=== PATIENT | male | born 1970 | race Caucasian/White ===

== ENCOUNTER 2018-02-06 15:15 | Outpatient (CLI) | payer BC ==
--- NOTE | 2018-02-06 16:22 | ULT ---
RIGHT LOWER EXTREMITY VENOUS DUPLEX ULTRASOUND INCLUDING COLOR AND SPECTRAL DOPPLER IMAGING: Date: 02/06/18 HISTORY: 47-year-old male with history of right leg pain. Patient is preoperative for right knee replacement. History of prior right leg deep venous thrombosis in 2010. TECHNIQUE: Exam performed from groin to ankle including visualized greater saphenous, common femoral, superficia l femoral, profunda femoral, popliteal, trifurcation, and posterior tibial vein regions. FINDINGS: There is phasic flow at all levels with normal compressibility and normal augmentation. No intralumin al thrombus. IMPRESSION: No evidence for deep venous thrombosis. POS: [facility]
== END 2018-02-06 15:16 | disposition home or self-care (01) ==
LOC: SCSULT 15:15
PROVIDERS: ATTEND Orthopaedic Surgery
DX: M79.604 Pain in right leg (principal); M79.89 Other specified soft tissue disorders

== ENCOUNTER 2018-02-09 13:22 | Outpatient (CLI) | payer BC ==
[2018-02-09 15:14] LABS: #Eosinphils 0.2 thou/uL (0.0-0.7); #Lymphocytes 1.6 thou/uL (1.20-3.40); #Monocytes 0.7 thou/uL (0.11-0.59); #Neutrophils 5.4 thou/uL (1.40-6.50); %Basophils 0.5 % (0.0-1.0); %Eosinophils 1.9 % (0.0-10.0); %Lymphocytes 20.3 % (21.0-51.0); %Monocytes 8.7 % (0.0-10.0); %Neutrophils 68.6 % (42.0-75.0); Hemoglobin 14.4 g/dL (14.0-18.0); Mean Corpuscular HGB CONC 32.7 g/dL (32.0-36.0); Mean Corpuscular Hemoglobin 29.1 pg (27.0-31.0); Mean Platelet Volume 6.4 fL (7.4-10.4); Platelet Count 282 thou/uL (130-400); RBC Distribution Width 12.2 % (11.5-14.5); Red Blood Cell (RBC) Count 4.94 mill/uL (4.70-6.10); White Blood Cell (WBC) Count 7.8 thou/uL (4.8-10.8)
[2018-02-09 15:22] LABS: Bilirubin Negative (Negative); Blood, Urine Small (Negative); Clarity CLOUDY (Clear); Glucose, Urine (Dipstick) Negative (Negative); Leukocyte Large (Negative); Nitrite Positive (Negative); Protein, Urine (Dipstick) Negative (Neg-Trace); Specific Gravity, Urine 1.017 (1.002-1.036); Urobilinogen 0.2 mg/dL (0.2-1.0); pH, Urine 5.5 (5.0-9.0)
[2018-02-09 15:35] LABS: Bacteria/HPF 2+ HPF (None Seen); Hyaline Casts/LPF 4-6 HYALINE CAST LPF (0-3 Hyaline); Pathc Cast-AUWi Flag 1.59 (0-2.49); RBC/HPF 0-3 HPF (0-3); Squamous Epithelial 0-3 HPF (0-3)
[2018-02-09 15:52] LABS: Anion Gap 14 mmol/L (10-20); BUN (Urea Nitrogen) 17 mg/dL (8.9-20.6); Calc. Creatinine Clearance 0 mL/min (70-130); Calcium 8.7 mg/dL (7.8-10.44); Carbon Dioxide 26 mmol/L (22-29); Chloride 102 mmol/L (98-107); Estimated GFR-MDRD Greater than 90; Glucose 70 mg/dL (70-105); Potassium 3.9 mmol/L (3.5-5.1); Sodium 138 mmol/L (136-145)
== END 2018-02-09 13:23 | disposition home or self-care (01) ==
LOC: LABBT 13:22
PROVIDERS: ATTEND Orthopaedic Surgery
DX: Z01.812 Encounter for preprocedural laboratory examination (principal); M17.11 Unilateral primary osteoarthritis, right knee
CPT/HCPCS: 80048; 81001; 85025; 87081

== ENCOUNTER 2018-02-09 15:00 | Inpatient (IN) | payer BC ==
[2018-02-21] MEDS ORDERED: Lidocaine 1% (PF) 30 ML VIAL ONE ×2 (06:12→06:16)
[2018-02-21] MEDS ORDERED: Fentanyl 100 MCG/2 ML VIAL ONE ×3 (06:12→09:44)
[2018-02-21] MEDS ORDERED: Midazolam HCl 2 mg/2 ml Vial ONE ×2 (06:12→06:16)
[2018-02-21] MEDS ORDERED: Clindamycin/D5W 600 mg/50 ml Premix Bag ONE (06:19)
[2018-02-21] MEDS ORDERED: Sodium Chloride 0.9% 100 ML ONE (06:19)
[2018-02-21] MEDS ORDERED: Zolpidem Tartrate 5 MG TAB PO PRN ×2 (07:32→11:19)
[2018-02-21] MEDS ORDERED: traMADol HCl 50 MG TAB PO PRN ×3 (07:32→11:19)
[2018-02-21] MEDS ORDERED: Ondansetron PF 4 MG/2 ML Vial IVP PRN ×2 (07:32→11:19)
[2018-02-21] MEDS ORDERED: Promethazine HCl 25 MG/ML VIAL IM PRN ×2 (07:32→11:19)
[2018-02-21] MEDS ORDERED: HYDROcodone/Acetaminophen 10/325 mg Tablet PO PRN ×2 (07:32)
[2018-02-21] MEDS ORDERED: Ropivacaine HCl/PF 250 ML in Premix Bag 1 BAG NERVE BLCK SCH (07:32)
[2018-02-21] MEDS ORDERED: Fentanyl 100 MCG/2 ML VIAL IV PRN (07:37)
[2018-02-21] MEDS ORDERED: Bupivacaine/Epinephrine 0.25% 30 ML VIAL ONE (07:39)
[2018-02-21] MEDS ORDERED: HYDROmorphone 2 MG/ML VIAL ONE (07:57)
[2018-02-21] MEDS ORDERED: Tranexamic Acid 1,000 MG in Sodium Chloride 0.9% 100 ML IVPB SCH (09:45)
--- NOTE | 2018-02-21 10:11 | RAD ---
RIGHT KNEE TWO VIEWS: History: Post op evaluation. Knee replacement. FINDINGS/IMPRESSION: Post op changes are noted. Knee prosthesis has been placed. Components appear in adequate position an d alignment on this two view study. POS: [facility]
--- NOTE | 2018-02-21 10:28 | OP ---
DATE OF PROCEDURE: 02/21/2018 PREOPERATIVE DIAGNOSIS: Severe varus osteoarthritis, right knee. POSTOPERATIVE DIAGNOSIS: Severe varus osteoarthritis, right knee. PROCEDURE PERFORMED: Right total knee arthroplasty. STAFF: Milton Curiel M.D. ANESTHESIOLOGY CRNA: Marely Turner PA-C. ANESTHESIA: LMA canal block with indwelling catheter single shot sciatic. ESTIMATED BLOOD LOSS: 100 mL. TOURNIQUET TIME: 99 minutes at 300 mmHg. ANTIBIOTICS: Ancef 2 gram, vancomycin 2 grams. IMPLANTS: [place] Triathlon size 6 CR femur, an A29 patella, a 6 universal baseplate, a 6 x CS 11 mm Triathlon X3 poly and Simplex antibiotic cement. COMPLICATIONS: None. HISTORY OF PRESENT ILLNESS: Mr. Zavala is a 47-year-old male with knee pain. 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 The patient's pain was a 10/10. I discussed with the patient preoperatively he had been cleared for surgery in that he has a significant complica tion risks to include pain, scar, bleeding, infection, damage to vital structures, decreased range of motion or strength, continued pain despite surgical intervention, damage to vital structures, loss o f life or limb. I discussed that we will need to start him on Xarelto postoperatively and keep it fo r 4 weeks as a treatment plan, 10 mg daily. I discussed with the patient we would give him give him preoperative antibiotics. I discussed the patient has a very difficult case given his size and impla nts. He understood this and elected to proceed. PROCEDURE IN DETAIL: Timeout was performed designating the patient's right lower extremity as the op erative site, based on site, consents and markings. After completion of timeout, the patient's right lower extremity was prepped and draped in sterile fashion. A tourniquet was brought up and was left up for a total of 99 minutes. Anterior midline incision made to take down the medial patellar arthr otomy, everted the patella, there were some large osteophytes we had to rongeur off, excised the fat pad, did our medial soft tissue release ____ out from the osteophytes. We then entered the patella b rought up to the ACL. There was no remnant ACL. The notch was packed with osteophytes. There were large osteophytes throughout the femur as well as some small ones on the tibia. We had to rongeur th ose femoral osteophytes off to expose, took off some of the synovitis proximally to better expose the femur. We then mapped out the distal femur, cut 0 degrees varus valgus tendon 10 to 9 with 4 degree s of anterior slope. After completion of this, we then moved to our femoral box cuts. We pinned our box into place, cut. Put the external guide into place. We sized to a 6 based on actual osteophyte s anteriorly as well as based off of the anterior cut. We then removed, placed our jig, cut our rosendo fers, anterior and posterior slope, removed those, we tried to place our pickle fork, we had difficul ty because the patient's osteophytes posteriorly, we had to rongeur off a portion of the posterior os teophytes. We exposed the posterior osteophytes. After we exposed the osteophytes we then were able to guide further removing the medial lateral compartments, we were able to cut and exposed the proxi mal tibia. We cut down, pinned our jig into place. We cut at negative 1 and 5 with 4 degrees of pos terior slope. After removing these removed the osteophytes medial and laterally we then placed our l aminar warehouse pricing and inventory clerk. We decompressed our PCL. There was a remnant PCL that was still intact. We decomp ressed our posterior components, posterior osteophytes, posterior, medial and laterally. We did our notchplasty, felt we had completely exposed our tibia. We then trialed with a size 6 tray, trialed b ased on the place in the femur as well as the tibia and flexed and extended and floated the tibia. I felt like we had a good position, we pinned it in place. We then took our final position and cut mu ltiple osteophytes off the patella, sized it up to 28. We cut it down to about, originally it was bi gger than that, I cut it down about a 15, placed a 30 patella, it seemed to track well. We did a lat eral lesion within the, some lateral release to help with positioning the patella and took down the o steophytes. After completion of this, we then removed all our components, drilled our lugs, we cut o ur keel then drilled our baseplate for a universal base plate, removed all of the implants, washed. We then cemented in our tibia, removed excess cement, placed our poly, cemented in our femur. The p atient had a good posterior drawer, came almost what looked like to me on full extension, stable varu s valgus. We then removed all excess cement and placed our patella, cemented our patella to hold it in place, removed excess cement. Flexed the knee again to ensure there was no excess, and washed out the knee and started closing. We closed our medial patellar arthrotomy with #2 Quill, 0 Quill, 2-0 Quill, and glue. The patient was placed in extension. The patient had overall good alignment post-p rocedure. The patient will be sent to the [facility] on Xarelto as above.
[2018-02-21] MEDS ORDERED: diphenhydrAMINE 25 MG CAP PO PRN (11:19)
[2018-02-21] MEDS ORDERED: Ketorolac Tromethamine 30 MG/ML VIAL IVP PRN (11:19)
[2018-02-21] MEDS ORDERED: Acetaminophen 325 MG TAB PO PRN (11:19)
[2018-02-21] MEDS ORDERED: Fentanyl 100 MCG/2 ML VIAL SLOW IVP PRN ×2 (11:19)
[2018-02-21 14:31] VITALS: BMI 45.2
[2018-02-21] MEDS: Dextrose 5 %-0.45 % NaCl 1,000 ML IV SCH ×2 (15:19→15:24)
[2018-02-21] MEDS: Multivitamin W/ Minerals 1 TAB PO SCH (15:20)
[2018-02-21] MEDS: Senokot S 8.6-50 MG TAB PO SCH ×2 (15:20→20:50)
[2018-02-21] MEDS: Ferrous Gluconate 324 MG TAB PO SCH ×2 (15:20→20:50)
[2018-02-21] MEDS: Ketorolac Tromethamine 30 MG/ML VIAL IVP SCH ×3 (15:20→23:06)
[2018-02-21] MEDS: CEFAZOLIN 2 GM/50 ML BAG IVPB SCH ×2 (15:24→21:32)
[2018-02-21] MEDS ORDERED: Ropivacaine 0.5% HCl/PF (150 MG/30 ML VIAL) ONE (15:28)
[2018-02-21] MEDS ORDERED: Bupivacaine 0.25% HCL 30 ML VIAL ONE (15:28)
[2018-02-21] MEDS ORDERED: Ondansetron PF 4 MG/2 ML Vial ONE (15:42)
[2018-02-21] MEDS ORDERED: ePHEDrine/0.9% NaCl/PF SYRINGE 50 mg/10 ml ONE (15:42)
[2018-02-21] MEDS ORDERED: Dexamethasone 20 MG/5 ML VIAL ONE (15:42)
[2018-02-21] MEDS ORDERED: PROPOFOL 200 MG/20 ML VIAL ONE (15:42)
[2018-02-21] MEDS ORDERED: Glycopyrrolate 0.2 MG/ML 5 ML SYRINGE ONE (15:42)
[2018-02-21] MEDS ORDERED: Lidocaine 1% PF 5 ML VIAL ONE (15:42)
[2018-02-21] MEDS ORDERED: Ketorolac Tromethamine 30 MG/ML VIAL ONE (15:42)
[2018-02-21] MEDS: HYDROcodone/Acetaminophen 10/325 mg Tablet PO PRN ×2 (17:18→21:32)
--- NOTE | 2018-02-21 17:24 | HP ---
PRIMARY CARE PROVIDER: Abi Rivas M.D. HISTORY OF PRESENT ILLNESS: Admitted to the hospital by Milton Curiel. He had a right total knee r eplacement this morning. Sound was consulted for medical management. Postoperatively, he has had no fever, sweats, chills, no chest pain, shortness of breath, no nausea or vomiting. PAST MEDICAL HISTORY: Gastroesophageal reflux disease, supraventricular tachycardia, osteoarthritis, previous history of deep vein thrombosis. CURRENT MEDICATIONS: Omeprazole 20 mg a day, vitamins, aspirin 81 mg a day. ALLERGIES: SULFA. PAST SURGICAL HISTORY: He has had a gastric sleeve done, previous to that he had a lap band. FAMILY HISTORY: His parents are alive. His mother has valvular heart disease. His father has coron homero artery disease with coronary artery bypass graft. SOCIAL HISTORY: Patient is , FULL CODE. at bedside, surrogate decision maker. No tobac co, no alcohol. 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 REVIEW OF SYSTEMS: General: No headaches, dizziness or fainting. Eyes: No double vision, blurred vision, flashing lights. ENT: No ear pain or drainage, nasal bleeding, trouble swallowing. Cardiac : No chest pain, orthopnea or paroxysmal nocturnal dyspnea. Respiratory: No cough, wheezing or ast hma. Gastrointestinal: No nausea, vomiting, abdominal pain, diarrhea. Genitourinary: No hematuria or dysuria. Musculoskeletal: Bilateral knee pain. He states that it [id number] arthritis from football and having once been 600 pounds. He also has some varicose veins. NEUROLOGIC: No strokes, seizures or focal weakness. PSYCHIATRIC: No anxiety, depression. SKIN: No bruises, bleeding or rash. HEME/LYMPH: No tender or swollen lymph nodes in axilla, inguinal or cervical area. PHYSICAL EXAMINATION: GENERAL: The patient is alert, oriented, cooperative. VITAL SIGNS: Blood pressure 143/68, temperature 97.7, pulse 67, respirations 16. HEENT: Revealed pupils equal, round, reactive to light. Extraocular movements are intact. Sclerae white. Tympanic membranes clear. Nose is clear. Oral mucous membranes are wet. Dental hygiene is good. NECK: Supple, without jugular venous distention, adenopathy, thyromegaly. CHEST: Clear to auscultation and percussion. HEART: Regular rate and rhythm. First and second heart sounds are clear. There are no murmurs, no gallops. ABDOMEN: Soft, bowel sounds are normal. There is no hepatosplenomegaly, no mass, no rebound, no bru its. EXTREMITIES: Reveal 1+ edema with no cyanosis or clubbing. PULSES: Carotid, radial, femoral, and dorsalis pedis pulses intact. SKIN: Warm and dry without bruises or rash. HEME/LYMPH: No tender or swollen lymph nodes in axilla, inguinal or cervical area. NEUROLOGICAL: Cranial nerves II-XII are intact. Moves all extremities. X-RAY FINDINGS: No chest x-ray is presented. No EKG is presented. LABORATORY DATA: Laboratory done preoperatively. CBC normal. Basic metabolic profile normal. Bloo d sugar 70. DIAGNOSES: Osteoarthritis, gastroesophageal reflux disease, supraventricular tachycardia, history of deep venous thrombosis. PLAN: Agree with current management. See no active problems, we will follow with you. Agree with mita rossi for deep vein thrombosis protection in the postoperative patient.
[2018-02-21] MEDS: Calcium Carbonate 600 MG TAB PO SCH (20:49)
[2018-02-22 05:21] LABS: Hemoglobin 12.6 g/dL (14.0-18.0); Mean Corpuscular HGB CONC 32.6 g/dL (32.0-36.0); Mean Corpuscular Hemoglobin 29.2 pg (27.0-31.0); Mean Corpuscular Volume 89.7 fL (78.0-98.0); Mean Platelet Volume 6.7 fL (7.4-10.4); Platelet Count 248 thou/uL (130-400); RBC Distribution Width 12.2 % (11.5-14.5); Red Blood Cell (RBC) Count 4.33 mill/uL (4.70-6.10)
[2018-02-22] MEDS: Ketorolac Tromethamine 30 MG/ML VIAL IVP SCH ×4 (05:53→23:30)
[2018-02-22] MEDS: HYDROcodone/Acetaminophen 10/325 mg Tablet PO PRN ×4 (06:41→21:36)
[2018-02-22] MEDS: Senokot S 8.6-50 MG TAB PO SCH ×2 (08:29→20:28)
[2018-02-22] MEDS: Rivaroxaban 10 MG TAB PO SCH (08:29)
[2018-02-22] MEDS: Multivitamin W/ Minerals 1 TAB PO SCH (08:30)
[2018-02-22] MEDS: Ferrous Gluconate 324 MG TAB PO SCH ×2 (08:30→20:28)
[2018-02-22] MEDS: Calcium Carbonate 600 MG TAB PO SCH ×2 (08:30→20:28)
[2018-02-22] MEDS: Dextrose 5 %-0.45 % NaCl 1,000 ML IV SCH ×2 (08:31→16:32)
--- NOTE | 2018-02-22 09:37 | PDOC.PN ---
- Subjective Encounter Start Date: 02/22/18 Encounter Start Time: 09:35 Subjective: walking with PT, got dizzy, had pain in arms and surgical leg. BP in 80s sy -: now fine , BP Nl, no chezt pain or sob - Objective MAR Reviewed: Yes Vital Signs & Weight: Vital Signs (12 hours) Temp Pulse Resp BP Pulse Ox 02/22/18 04:52 98.6 F 60 18 112/60 98 02/22/18 00:32 98.5 F 59 L 20 105/62 99 Weight Weight 343 lb I&O: 02/21/18 02/22/18 02/23/18 06:59 06:59 06:59 Intake Total 3300 Output Total 3400 Balance -100 Result Diagrams: 02/22/18 04:50 Phys Exam - Physical Examination Neck: no JVD Respiratory: clear to auscultation bilateral Cardiovascular: RRR, no significant murmur Gastrointestinal: soft, non-tender Musculoskeletal: no edema Dx/Plan (1) Osteoarthritis Code(s): M19.90 - UNSPECIFIED OSTEOARTHRITIS, UNSPECIFIED SITE Status: Acute (2) GERD (gastroesophageal reflux disease) Code(s): K21.9 - GASTRO-ESOPHAGEAL REFLUX DISEASE WITHOUT ESOPHAGITIS Status: Acute (3) H/O paroxysmal supraventricular tachycardia Code(s): Z86.79 - PERSONAL HISTORY OF OTHER DISEASES OF THE CIRCULATORY SYSTEM Status: Acute (4) DVT prophylaxis Code(s): UWK2425 - Status: Acute (5) Vaso vagal episode Code(s): R55 - SYNCOPE AND COLLAPSE Status: Acute - Plan patient seen and examined, no evidence for CV problem. Hg 12.6, monitor, -: FU later today * .
[2018-02-23] MEDS: Dextrose 5 %-0.45 % NaCl 1,000 ML IV SCH ×2 (04:20→08:47)
[2018-02-23 05:14] LABS: Hemoglobin 11.7 g/dL (14.0-18.0); Mean Corpuscular HGB CONC 32.2 g/dL (32.0-36.0); Mean Corpuscular Hemoglobin 29.2 pg (27.0-31.0); Mean Corpuscular Volume 90.8 fL (78.0-98.0); Mean Platelet Volume 6.6 fL (7.4-10.4); Platelet Count 212 thou/uL (130-400); RBC Distribution Width 12.4 % (11.5-14.5); Red Blood Cell (RBC) Count 3.99 mill/uL (4.70-6.10); White Blood Cell (WBC) Count 6.5 thou/uL (4.8-10.8)
[2018-02-23] MEDS: Ketorolac Tromethamine 30 MG/ML VIAL IVP SCH (06:21)
[2018-02-23] MEDS: HYDROcodone/Acetaminophen 10/325 mg Tablet PO PRN ×2 (08:44→13:42)
[2018-02-23] MEDS: Ferrous Gluconate 324 MG TAB PO SCH (08:45)
[2018-02-23] MEDS: Rivaroxaban 10 MG TAB PO SCH (08:45)
[2018-02-23] MEDS: Multivitamin W/ Minerals 1 TAB PO SCH (08:45)
[2018-02-23] MEDS: Calcium Carbonate 600 MG TAB PO SCH (08:46)
[2018-02-23] MEDS: Senokot S 8.6-50 MG TAB PO SCH (08:46)
[2018-02-23 12:13] VITALS: TEMP 98.4
[2018-02-23 12:20] VITALS: BP 172/71
== END 2018-02-23 13:56 | disposition home or self-care (01) | DRG 470 ==
LOC: SJJU 02-21 05:30
PROVIDERS: ADMIT Orthopaedic Surgery; ATTEND Orthopaedic Surgery
PROC: 0SRC0J9 Replacement of Right Knee Joint with Synthetic Substitute, Cemented, Open Approach (ICD-10-PCS; principal; 2018-02-21)
DX: M17.0 Bilateral primary osteoarthritis of knee (principal); Z68.42 Body mass index [BMI] 45.0-49.9, adult; K21.9 Gastro-esophageal reflux disease without esophagitis; Z86.718 Personal history of other venous thrombosis and embolism; Z98.84 Bariatric surgery status; Z79.899 Other long term (current) drug therapy; Z79.82 Long term (current) use of aspirin; Z88.2 Allergy status to sulfonamides; E66.01 Morbid (severe) obesity due to excess calories; Z86.79 Personal history of other diseases of the circulatory system
CPT/HCPCS: 36415; 36416; 85027; 86850; 86900; 86901; C1713; C1776; G8978-GP-CL; G8979-GP-CJ; J1100; J1170; J1885; J2001; J2250; J2405; J2704; J2795; J3010; J3370; J3490; J7050; S0020

== ENCOUNTER 2018-02-20 08:00 | Outpatient (CLI) | payer BC | END 2018-02-20 08:01 | disposition home or self-care (01) | LOC: LABBT 08:00 | PROVIDERS: ATTEND Orthopaedic Surgery | DX: Z01.812 Encounter for preprocedural laboratory examination (principal); M17.0 Bilateral primary osteoarthritis of knee | CPT/HCPCS: 86850; 86900; 86901 ==

== ENCOUNTER 2018-05-18 04:32 | Outpatient (CLI) | payer BC ==
[2018-05-18 10:46] LABS: #Basophils 0.1 thou/uL (0.0-0.2); #Eosinphils 0.1 thou/uL (0.0-0.7); #Lymphocytes 1.1 thou/uL (1.20-3.40); #Monocytes 0.4 thou/uL (0.11-0.59); #Neutrophils 3.9 thou/uL (1.40-6.50); %Basophils 1.2 % (0.0-1.0); %Eosinophils 2.3 % (0.0-10.0); %Lymphocytes 19.9 % (21.0-51.0); %Monocytes 6.7 % (0.0-10.0); %Neutrophils 69.9 % (42.0-75.0); Hemoglobin 14.1 g/dL (14.0-18.0); Mean Corpuscular HGB CONC 31.6 g/dL (32.0-36.0); Mean Corpuscular Hemoglobin 27.9 pg (27.0-31.0); Mean Corpuscular Volume 88.4 fL (78.0-98.0); Mean Platelet Volume 6.4 fL (7.4-10.4); Platelet Count 291 thou/uL (130-400); Red Blood Cell (RBC) Count 5.04 mill/uL (4.70-6.10); White Blood Cell (WBC) Count 5.6 thou/uL (4.8-10.8)
[2018-05-18 10:52] LABS: INR-International Normal Ratio 1.1; PTT 28.6 SEC (22.9-36.1); Prothrombin Time 13.8 SEC (12.0-14.7)
[2018-05-18 11:03] LABS: Anion Gap 10 mmol/L (10-20); BUN (Urea Nitrogen) 14 mg/dL (8.9-20.6); Calc. Creatinine Clearance 0 mL/min (70-130); Calcium 9.2 mg/dL (7.8-10.44); Carbon Dioxide 29 mmol/L (22-29); Chloride 102 mmol/L (98-107); Estimated GFR-MDRD Greater than 90; Glucose 76 mg/dL (70-105); Sodium 137 mmol/L (136-145)
[2018-05-18 11:26] LABS: Bilirubin Negative (Negative); Blood, Urine Negative (Negative); Clarity CLEAR (Clear); Glucose, Urine (Dipstick) Negative (Negative); Leukocyte Negative (Negative); Nitrite Negative (Negative); Protein, Urine (Dipstick) Negative (Neg-Trace); Specific Gravity, Urine 1.005 (1.002-1.036); Urobilinogen 0.2 mg/dL (0.2-1.0); pH, Urine 6.5 (5.0-9.0)
[2018-05-18 11:28] LABS: Bacteria/HPF None Seen HPF (None Seen); Hyaline Casts/LPF 0-3 HYALINE CAST LPF (0-3 Hyaline); RBC/HPF 0-3 HPF (0-3); Squamous Epithelial 0-3 HPF (0-3); WBC/HPF None Seen HPF (0-3)
--- NOTE | 2018-05-19 09:01 | EKG ---
Test Reason : Blood Pressure : / mmHG Vent. Rate : 054 BPM Atrial Rate : 054 BPM P-R Int : 138 ms QRS Dur : 114 ms QT Int : 458 ms P-R-T Axes : 046 064 052 degrees QTc Int : 434 ms Sinus bradycardia Otherwise normal ECG When compared with ECG of 20-DEC-2016 22:17, No significant change was found Confirmed by DR. Dinora WELLS ([id number]) on 05/19/2018 9:01:15 AM Referred By: SUSI Confirmed By:DR. Dinora WELLS
== END 2018-05-18 04:33 | disposition home or self-care (01) ==
LOC: LABBT 04:32
PROVIDERS: ATTEND Orthopaedic Surgery
DX: Z01.818 Encounter for other preprocedural examination (principal); M17.12 Unilateral primary osteoarthritis, left knee
CPT/HCPCS: 80048; 81001; 85025; 85610; 85730; 86850; 86900; 86901; 87081; 93005; 93010

== ENCOUNTER 2018-05-18 08:30 | Inpatient (IN) | payer BC ==
[2018-05-18 09:18] VITALS: BMI 45.5
[2018-05-23] MEDS ORDERED: Vancomycin HCl 1.5 GM in Sodium Chloride 0.9% 250 ML 300 ML IVPB SCH (06:15)
[2018-05-23] MEDS ORDERED: Lidocaine 1% (PF) 30 ML VIAL ONE (06:18)
[2018-05-23] MEDS ORDERED: Midazolam HCl 2 mg/2 ml Vial ONE (06:18)
[2018-05-23] MEDS ORDERED: Ropivacaine 0.2% HCl/PF 20 ML ONE (06:18)
[2018-05-23] MEDS ORDERED: Fentanyl 100 MCG/2 ML VIAL ONE ×5 (06:18→10:28)
[2018-05-23] MEDS ORDERED: Sodium Chloride 0.9% 100 ML ONE (06:35)
[2018-05-23] MEDS ORDERED: Tranexamic Acid 1,000 MG/10 ML VIAL ONE ×2 (06:35→11:57)
[2018-05-23] MEDS ORDERED: CEFAZOLIN 2 GM/50 ML BAG ONE (06:35)
[2018-05-23] MEDS ORDERED: Bupivacaine HCl 0.5%/Epinephrine 1:200,000/PF 30 ml Vial ONE (06:44)
[2018-05-23] MEDS ORDERED: Fentanyl 100 MCG/2 ML VIAL SLOW IVP PRN ×2 (06:48)
[2018-05-23] MEDS ORDERED: HYDROcodone/Acetaminophen 10/325 mg Tablet PO PRN ×3 (06:48→07:38)
[2018-05-23] MEDS ORDERED: Promethazine HCl 25 MG/ML VIAL IM PRN ×2 (06:48→07:38)
[2018-05-23] MEDS ORDERED: Acetaminophen 325 MG TAB PO PRN (06:48)
[2018-05-23] MEDS ORDERED: traMADol HCl 50 MG TAB PO PRN ×2 (06:48→07:38)
[2018-05-23] MEDS ORDERED: diphenhydrAMINE 25 MG CAP PO PRN (06:48)
[2018-05-23] MEDS ORDERED: Zolpidem Tartrate 5 MG TAB PO PRN ×2 (06:48→07:38)
[2018-05-23] MEDS ORDERED: Ondansetron PF 4 MG/2 ML Vial IVP PRN ×2 (06:48→07:38)
[2018-05-23] MEDS ORDERED: Ketorolac Tromethamine 30 MG/ML VIAL IVP PRN (06:48)
[2018-05-23] MEDS ORDERED: Fentanyl 100 MCG/2 ML VIAL IV PRN (07:38)
[2018-05-23] MEDS ORDERED: Ropivacaine HCl/PF 250 ML in Premix Bag 1 BAG NERVE BLCK SCH (07:38)
[2018-05-23] MEDS: Dextrose 5 %-0.45 % NaCl 1,000 ML IV SCH ×2 (09:38→13:53)
[2018-05-23] MEDS: Multivitamin W/ Minerals 1 TAB PO SCH (09:39)
[2018-05-23] MEDS: Senokot S 8.6-50 MG TAB PO SCH ×2 (09:39→21:07)
[2018-05-23] MEDS: Ferrous Gluconate 324 MG TAB PO SCH ×2 (09:39→21:05)
[2018-05-23] MEDS ORDERED: Ropivacaine 0.5% HCl/PF (150 MG/30 ML VIAL) ONE (10:10)
--- NOTE | 2018-05-23 10:17 | HP ---
HISTORY OF PRESENT ILLNESS: Mr. Zavala is a 48-year-old male, presented with previous right total knee arthroplasty, now with left knee pain. The pain can be severe, difficulty with range of motion. He has previous history of DVT in right lower extremity, has undergone weight loss, anti-inflammatories, has failed conservative measures, desires to have a left total knee arthroplasty. PAST MEDICAL HISTORY: Sleep apnea, restless sleep. PAST SURGICAL HISTORY: Lap-Band, sleeve, right GSV ablation, right total knee arthroplasty. MEDICATIONS: Include; 1. Aspirin. 2. Calcium carbonate. 3. Vitamin D3. 4. Ibuprofen. 5. Centrum multivitamin. 6. Omeprazole. ALLERGIES: BACTRIM, SULFA, TRIMETHOPRIM. SOCIAL HISTORY: The patient has no alcohol, no drug. The patient has one child, one on the way. He is Anabaptist. The patient is . He works as an application engineer. PHYSICAL EXAMINATION: GENERAL: Alert and oriented, in no acute distress, resting up in bed. EXTREMITIES: The patient's left knee has venous stasis changes. Left lower extremity; varus angulation, lateral joint tenderness, ligamentous laxity. The patient has motor and sensation intact. He has good straight leg raise. ASSESSMENT: Left knee osteoarthritis, status post right total knee arthroplasty. PLAN: The patient will be taken back for left total knee arthroplasty. The patient will receive Xarelto postoperatively. I discussed with the patient risks and benefits of surgery, pain, scar, bleeding, infection, damage to vital structures, decreased range of motion and strength, fracture, failure of the implants, blood clots, loss of life or limb. The patient understands the risk and benefits, elected to proceed. I will take him to the operating suite today. Job ID: [id number]
--- NOTE | 2018-05-23 10:25 | RAD ---
LEFT KNEE TWO VIEWS: HISTORY: Status post left knee arthroplasty. COMPARISON: None. FINDINGS: Two views of the left knee show the patient to be status post left knee arthroplasty without perihard leslie lucency of fracture. Air in the soft tissues is from recent surgery. IMPRESSION: Status post left knee arthroplasty without evidence of complication. POS: [facility]
[2018-05-23] MEDS ORDERED: HYDROmorphone 2 MG/ML VIAL ONE (10:28)
[2018-05-23] MEDS ORDERED: Ondansetron PF 4 MG/2 ML Vial ONE (10:30)
[2018-05-23] MEDS ORDERED: Tranexamic Acid 1,000 MG in Sodium Chloride 0.9% 100 ML IVPB SCH (10:30)
[2018-05-23] MEDS ORDERED: Dexamethasone 20 MG/5 ML VIAL ONE (10:30)
[2018-05-23] MEDS ORDERED: Ketorolac Tromethamine 30 MG/ML VIAL ONE (10:30)
[2018-05-23] MEDS ORDERED: PROPOFOL 200 MG/20 ML VIAL ONE (10:30)
[2018-05-23] MEDS ORDERED: Lidocaine 1% PF 5 ML VIAL ONE (10:30)
--- NOTE | 2018-05-23 12:30 | OP ---
DATE OF PROCEDURE: 05/23/2018 PREOPERATIVE DIAGNOSES: 1. Severe left knee osteoarthritis, varus. 2. Morbid obesity. 3. History of bariatric surgery. PROCEDURE PERFORMED: Left total knee arthroplasty. CLINICAL SERVICES ASSISTANT: Baldemar Culp PA-C. ANESTHESIA: Dr. Noriega. The patient received LMA with a single-shot sciatic, adductor canal catheter. ESTIMATED BLOOD LOSS: 100 mL. TOURNIQUET TIME: 96 minutes at 300 mmHg. ANTIBIOTICS: Vancomycin 2 g, Ancef 2 g, TXA 1 g. IMPLANTS: The patient received a Abhijit triathlon CR femur, size 6, a size 6 universal base plate with a 12 x 50 mm stem. The patient had a 6 x 13 tibial insert and a 32 patella and a large canal plug, which was in and out. COMPLICATIONS: None. HISTORY OF PRESENT ILLNESS: Mr. Zavala is a 48-year-old male with severe bilateral knee osteoarthritis. He underwent a right total knee arthroplasty late last year, desired to have his left knee replaced. I discussed with the patient risks and benefits of surgery to include pain, scar, bleeding, infection, damage to vital structures, decreased range of motion, nonunion, malunion, fracture above or below the stem, failure of procedure, need for further revision. I discussed with the patient the risks of blood clot given his previous history. I discussed risks of loss of life or limb. The patient stated that he desired to proceed given incoming baby and severe pain, inability to mobilize, discussing these risks and benefits and elected to proceed. DESCRIPTION OF PROCEDURE: Time-out was performed designating the patient's left lower extremity as operative site, based on site, consents, and marking. After time-out, the patient's left lower extremity was prepped and draped in sterile fashion. Tourniquet was brought up for a total of 96 minutes. I made an anterior midline incision in the patellar arthrotomy, excised the patient's fat pad and excised some of the fat pad in the medial aspect, had good overall soft tissue medial sleeve. We then started by rongeuring the patella to expose and removing the osteophytes to help with our exposure. We exposed the medial plateau and we were able to sublux the patella and exposed the distal femur. We placed our jig in place and cut, 11 and 7, 0 degrees of varus and valgus with 4 degrees of anterior slope. We cut and removed our osteophytes medially and laterally. We then placed 3- degree external rotation guide to size block. We placed the jig in the position. We pinned and sized to 6 and cut our blocks with difficulty with posterior osteophytes noted within which took us time to be able to knock off, we placed lamina test tech to help with this positioning. After removing osteophytes, we moved to our tibia. Tibia was fairly impacted and we had difficulty subluxing because of the left posterior aspect of the tibia. Therefore, we had to use a laminar test tech to remove the osteophytes from the femur as well as the tibia to help with exposure of tibia. We cut the tibial eminence. We kept the PCL in place, so that we did a PCL release. We then moved back to our tibia. With our tibia, we were able to place our guide. We cut the tibia with a degree of varus and 4 degrees of posterior slope. We still had a small posterior medial defect, which after rongeuring of the osteophytes, there was only about an 8 mm defect posterior medial within the femur, which we just drilled and placed them into position. We then placed the lamina spreaders again and removed the menisci, decompressed gutters of any osteophytes posterior and medial/lateral. We then moved to pin our tibial tray into position, anterior 1/3rd of tibial tubercle in line with the tibia second ray. We pinned it in position. We then placed our 13 mm patella. 11 up to 13 of femur , we had good extension, stability in varus and valgus, and flexion, had a firm endpoint. The patient had overall good alignment and liked the overall position of the knee based off the trays. We then everted the patella. We cut the patella to a 32, drilled and placed our patella, which tracked well. We then everted and removed all the osteophytes. We drilled our holes for the femur. We then pulled off and cut our plug, keel for tibia and we drilled for small short stem, removed all the implants. We washed all the bone. We then cemented. I attempted to place a bone plug but we did not have any mediums and the cement was drying, therefore, it was already thickened and I placed just a small amount of cement down the stem. We then placed the rest of the cement on our tibia. We removed the excess cement and we drilled posterior and medial defect to help with positioning. We then removed the excess cement, placed a 13 mm poly and reduced the knee, brought the femur up in place, cleaned off the femur, placed all of our cement in place and cemented the femur , removed the excess cement,, placed the patella, cemented and removed the excess cement. We moved back to our femur, cleaned off any potential places of excess cement, washed the joint, ensured there was no excess. We then moved back to patella and removed the access. We then closed the arthrotomy with #2 Vicryl, 0 Quill, 2-0 Quill, and glue. The patient will be admitted per [facility] protocol, weightbear as tolerated. Job ID: [id number]
[2018-05-23] MEDS ORDERED: cloNIDine 0.1 MG TAB PO PRN (13:14)
[2018-05-23] MEDS ORDERED: HYDROcodone/Acetaminophen 5/325 mg Tablet PO PRN (13:14)
[2018-05-23] MEDS ORDERED: Acetaminophen 500 MG TAB PO PRN (13:14)
[2018-05-23] MEDS ORDERED: Diabetic Tussin 200 MG/10 ML UDCUP PO PRN (13:14)
[2018-05-23] MEDS ORDERED: Benzonatate 100 MG CAP PO PRN (13:14)
[2018-05-23] MEDS ORDERED: hydrALAZINE 20 MG/ML VIAL SLOW IVP PRN (13:14)
[2018-05-23] MEDS: HYDROcodone/Acetaminophen 10/325 mg Tablet PO PRN ×3 (13:30→21:04)
--- NOTE | 2018-05-23 14:38 | PDOC.PN ---
- Subjective Encounter Start Date: 05/23/18 Encounter Start Time: 14:37 Subjective: s/p Left knee arthroplasty.c/p pain in operative site. -: chart reviewed. pt seen and examined at bedside -: denies any CP/SOB/N/V/D/Abd pain etc.PCP Dr Rivas - Objective MAR Reviewed: Yes Vital Signs & Weight: Weight Weight 345 lb I&O: 05/22/18 05/23/18 05/24/18 06:59 06:59 06:59 Intake Total 400 Output Total 300 Balance 100 Phys Exam - Physical Examination Constitutional: NAD HEENT: PERRLA, moist MMs, sclera anicteric, TM's clear, oral pharynx no lesions , 2+ tonsils Neck: no nodes, no JVD, supple, full ROM Respiratory: no wheezing, no rales, no rhonchi, clear to auscultation bilateral Cardiovascular: RRR, no significant murmur Gastrointestinal: soft, non-tender, no distention, positive bowel sounds Musculoskeletal: no edema, pulses present Neurological: non-focal, normal sensation, moves all 4 limbs Psychiatric: normal affect, A&O x 3 Skin: no rash Dx/Plan (1) Status post left knee replacement Code(s): Z96.652 - PRESENCE OF LEFT ARTIFICIAL KNEE JOINT Status: Acute (2) GERD (gastroesophageal reflux disease) Code(s): K21.9 - GASTRO-ESOPHAGEAL REFLUX DISEASE WITHOUT ESOPHAGITIS Status: Chronic (3) H/O deep venous thrombosis Code(s): Z86.718 - PERSONAL HISTORY OF OTHER VENOUS THROMBOSIS AND EMBOLISM Status: Chronic Comment: 7 years ago. s/p Rx w Coumadin for 6 months at that time.no recurrance (4) H/O paroxysmal supraventricular tachycardia Code(s): Z86.79 - PERSONAL HISTORY OF OTHER DISEASES OF THE CIRCULATORY SYSTEM Status: Chronic (5) Osteoarthritis Code(s): M19.90 - UNSPECIFIED OSTEOARTHRITIS, UNSPECIFIED SITE Status: Acute - Plan plan discussed w/ family, DVT proph w/SCDs Xarelto for DVt prophylaxis given h/o DVT -: am labs -: home meds reviewed. restart as below -: Hd stable. -: IM team will follow. Add prn meds * . Review of Systems - Review of Systems Constitutional: negative: fever, chills, sweats, weakness, malaise, other Eyes: negative: Pain, Vision Change, Conjunctivae Inflammation, Eyelid Inflammation, Redness, Other ENT: negative: Ear Pain, Ear Discharge, Nose Pain, Nose Discharge, Nose Congestion, Mouth Pain, Mouth Swelling, Throat Pain, Throat Swelling, Other Respiratory: negative: Cough, Dry, Shortness of Breath, Hemoptysis, SOB with Excertion, Pleuritic Pain, Sputum, Wheezing Cardiovascular: negative: chest pain, palpitations, orthopnea, paroxysmal nocturnal dyspnea, edema, light headedness, other Gastrointestinal: negative: Nausea, Vomiting, Abdominal Pain, Diarrhea, Constipation, Melena, Hematochezia, Other Genitourinary: negative: Dysuria, Frequency, Incontinence, Hematuria, Retention , Other Musculoskeletal: Other. negative: Neck Pain, Shoulder Pain, Arm Pain, Back Pain , Hand Pain, Leg Pain, Foot Pain Skin: negative: Rash, Lesions, Geovanny, Bruising, Other Neurological: negative: Weakness, Numbness, Incoordination, Change in Speech, Confusion, Seizures, Other - Medications/Allergies Allergies/Adverse Reactions: Allergies Allergy/AdvReac Type Severity Reaction Status Date / Time Sulfa (Sulfonamide Allergy Verified 05/23/18 14:18 Antibiotics) sulfamethoxazole Allergy Verified 05/23/18 14:18 [From Bactrim] trimethoprim [From Bactrim] Allergy Verified 05/23/18 14:18 Medications: Current Medications Acetaminophen (Tylenol) 650 mg PO Q4H PRN PRN Reason: Headache/Fever or Pain Acetaminophen (Tylenol) 1,000 mg PO Q6H PRN PRN Reason: Mild Pain (1-3) Hydrocodone Bitart/Acetaminophen ([place] 10/325) 1 tab PO Q4H PRN PRN Reason: Pain (1-3) Hydrocodone Bitart/Acetaminophen ([place] 10/325) 2 tab PO Q4H PRN PRN Reason: PAIN (4-6) Last Admin: 05/23/18 13:30 Dose: 2 tab Hydrocodone Bitart/Acetaminophen ([place] 5/325) 1 tab PO Q4H PRN PRN Reason: Moderate Pain (4-6) Benzonatate (Tessalon) 100 mg PO Q6H PRN PRN Reason: Cough Calcium Carbonate (Caltrate) 1,200 mg PO BID FILIBERTO Cefazolin Sodium/Dextrose (Ancef 2 Gm/50 Ml) 2 gm IVPB Q8HR [facility] Stop: 05/23/18 22:01 Cholecalciferol (Vitamin D3) 2,000 units PO BID [facility] Clonidine (Catapres) 0.1 mg PO Q4H PRN PRN Reason: SBP > _160___ Diphenhydramine HCl (Benadryl) 25 mg PO Q6H PRN PRN Reason: Itching Fentanyl (Sublimaze) 50 mcg SLOW IVP Q30MIN PRN PRN Reason: Moderate Pain (4-6) Fentanyl (Sublimaze) 100 mcg SLOW IVP Q1H PRN PRN Reason: Severe Pain (7-10) Fentanyl (Sublimaze) 50 mcg IV Q1H PRN PRN Reason: BREAKTHROUGH PAIN Ferrous Gluconate (Fergon) 324 mg PO BID [facility] Last Admin: 05/23/18 09:39 Dose: Not Given Guaifenesin (Robitussin Sf) 200 mg PO Q4H PRN PRN Reason: Cough Hydralazine HCl (Apresoline) 10 mg SLOW IVP Q4H PRN PRN Reason: SBP > 180 and HR < 70 Vancomycin HCl 1.5 gm/ Sodium (Chloride) 300 mls @ 200 mls/hr IVPB ONCALL-OR FILIBERTO Vancomycin HCl 2 gm/ Sodium (Chloride) 500 mls @ 250 mls/hr IVPB ONCALL-OR [facility] Dextrose/Sodium Chloride (D5 1/2 Ns) 1,000 mls @ 100 mls/hr IV .Q10H [facility] Last Admin: 05/23/18 13:53 Dose: Not Given Vancomycin HCl 2 gm/ Sodium (Chloride) 500 mls @ 250 mls/hr IVPB 1900 [facility] Stop: 05/23/18 20:59 Ropivacaine 250 ml/ Device 250 mls @ 0 mls/hr NERVE BLCK INF [facility] Ibuprofen (Motrin) 400 mg PO DAILY [facility] Iron/Minerals/Multivitamins (Theragran M) 1 tab PO DAILY [facility] Last Admin: 05/23/18 09:39 Dose: Not Given Ketorolac Tromethamine (Toradol) 30 mg IVP Q8HR PRN PRN Reason: Pain Stop: 05/25/18 14:01 Multivitamins (Theragran) 1 tab PO BID [facility] Ondansetron HCl (Zofran) 4 mg IVP Q6H PRN PRN Reason: Nausea/Vomiting Pantoprazole Sodium (Protonix) 40 mg PO DAILY [facility] Promethazine HCl (Phenergan) 12.5 mg IM Q4H PRN PRN Reason: Nausea Rivaroxaban (Xarelto) 10 mg PO DAILY [facility] Senna/Docusate Sodium (Senokot S) 2 tab PO BID [facility] Last Admin: 05/23/18 09:39 Dose: Not Given Sodium Chloride (Flush - Normal Saline) 10 ml IVF PRN PRN PRN Reason: Saline Flush Tramadol HCl (Ultram) 50 mg PO Q6H PRN PRN Reason: Mild Pain (1-3) Tramadol HCl (Ultram) 100 mg PO Q6H PRN PRN Reason: Moderate Pain 4-6 Zolpidem Tartrate (Ambien) 5 mg PO HSPRN PRN PRN Reason: Insomnia
[2018-05-23] MEDS: CEFAZOLIN 2 GM/50 ML BAG IVPB SCH ×2 (15:59→21:06)
[2018-05-23] MEDS: Multivit, Therapeutic 1 TAB PO SCH (21:05)
[2018-05-23] MEDS: Calcium Carbonate 600 MG TAB PO SCH (21:05)
[2018-05-24] MEDS: Dextrose 5 %-0.45 % NaCl 1,000 ML IV SCH ×3 (01:29→23:32)
[2018-05-24] MEDS: HYDROcodone/Acetaminophen 10/325 mg Tablet PO PRN ×5 (01:30→19:52)
[2018-05-24] MEDS: traMADol HCl 50 MG TAB PO PRN ×2 (02:41→08:57)
[2018-05-24 05:08] LABS: Hemoglobin 12.2 g/dL (14.0-18.0); Mean Corpuscular HGB CONC 33.6 g/dL (32.0-36.0); Mean Corpuscular Hemoglobin 29.6 pg (27.0-31.0); Mean Corpuscular Volume 88.1 fL (78.0-98.0); Mean Platelet Volume 6.5 fL (7.4-10.4); Platelet Count 230 thou/uL (130-400); RBC Distribution Width 12.1 % (11.5-14.5); Red Blood Cell (RBC) Count 4.11 mill/uL (4.70-6.10); White Blood Cell (WBC) Count 7.9 thou/uL (4.8-10.8)
[2018-05-24 05:26] LABS: Anion Gap 13 mmol/L (10-20); BUN (Urea Nitrogen) 11 mg/dL (8.9-20.6); Calc. Creatinine Clearance 282 mL/min (70-130); Calcium 8.3 mg/dL (7.8-10.44); Carbon Dioxide 22 mmol/L (22-29); Chloride 102 mmol/L (98-107); Estimated GFR-MDRD Greater than 90; Glucose 100 mg/dL (70-105); Potassium 3.6 mmol/L (3.5-5.1); Sodium 133 mmol/L (136-145)
[2018-05-24] MEDS: Ibuprofen 200 MG TAB PO SCH (09:00)
[2018-05-24] MEDS: Rivaroxaban 10 MG TAB PO SCH ×2 (09:01→09:02)
[2018-05-24] MEDS: Calcium Carbonate 600 MG TAB PO SCH ×2 (09:03→19:55)
[2018-05-24] MEDS: Ferrous Gluconate 324 MG TAB PO SCH ×2 (09:04→19:55)
[2018-05-24] MEDS: Multivitamin W/ Minerals 1 TAB PO SCH (09:04)
[2018-05-24] MEDS: Multivit, Therapeutic 1 TAB PO SCH ×2 (10:07→19:55)
[2018-05-24] MEDS: Senokot S 8.6-50 MG TAB PO SCH ×2 (13:22→19:54)
[2018-05-24] MEDS ORDERED: Melatonin 3 MG TAB PO PRN (14:28)
--- NOTE | 2018-05-24 14:30 | PDOC.PN ---
- Subjective Encounter Start Date: 05/24/18 Encounter Start Time: 14:28 Subjective: feels better today. pain in post op knee is manageable -: no new complaints - Objective MAR Reviewed: Yes Vital Signs & Weight: Vital Signs (12 hours) Temp Pulse Resp BP Pulse Ox 05/24/18 08:13 98.3 F 79 18 149/77 H 96 05/24/18 04:38 98.4 F 82 17 133/68 94 L Weight Admit Weight 345 lb Weight 345 lb I&O: 05/23/18 05/24/18 05/25/18 06:59 06:59 06:59 Intake Total 400 1446 Output Total 300 900 Balance 100 546 Result Diagrams: 05/24/18 04:13 05/24/18 04:12 Additional Labs: Laboratory Tests 05/18/18 05/24/18 09:55 04:13 Hgb 14.1 12.2 L Phys Exam - Physical Examination Constitutional: NAD HEENT: PERRLA, moist MMs, sclera anicteric, oral pharynx no lesions Neck: no nodes, no JVD, supple, full ROM Respiratory: no wheezing, no rales, no rhonchi, clear to auscultation bilateral Cardiovascular: RRR, no significant murmur, no rub Gastrointestinal: soft, non-tender, no distention, positive bowel sounds Musculoskeletal: no edema, pulses present Neurological: non-focal, normal sensation, moves all 4 limbs Psychiatric: normal affect, A&O x 3 Skin: no rash Dx/Plan (1) GERD (gastroesophageal reflux disease) Code(s): K21.9 - GASTRO-ESOPHAGEAL REFLUX DISEASE WITHOUT ESOPHAGITIS Status: Chronic (2) Status post left knee replacement Code(s): Z96.652 - PRESENCE OF LEFT ARTIFICIAL KNEE JOINT Status: Acute (3) H/O deep venous thrombosis Code(s): Z86.718 - PERSONAL HISTORY OF OTHER VENOUS THROMBOSIS AND EMBOLISM Status: Chronic Comment: 7 years ago. s/p Rx w Coumadin for 6 months at that time.no recurrance (4) H/O paroxysmal supraventricular tachycardia Code(s): Z86.79 - PERSONAL HISTORY OF OTHER DISEASES OF THE CIRCULATORY SYSTEM Status: Chronic (5) Osteoarthritis Code(s): M19.90 - UNSPECIFIED OSTEOARTHRITIS, UNSPECIFIED SITE Status: Acute - Plan DVT proph w/SCDs cont OT/PT. -: add prn melatonin -: monitor H/H -: IM team will follow -: cont ASA BID and PPI * . Review of Systems - Review of Systems Constitutional: negative: fever, chills, sweats, weakness, malaise, other ENT: negative: Ear Pain, Ear Discharge, Nose Pain, Nose Discharge, Nose Congestion, Mouth Pain, Mouth Swelling, Throat Pain, Throat Swelling, Other Respiratory: negative: Cough, Dry, Shortness of Breath, Hemoptysis, SOB with Excertion, Pleuritic Pain, Sputum, Wheezing Cardiovascular: negative: chest pain, palpitations, orthopnea, paroxysmal nocturnal dyspnea, edema, light headedness, other Gastrointestinal: negative: Nausea, Vomiting, Abdominal Pain, Diarrhea, Constipation, Melena, Hematochezia, Other Genitourinary: negative: Dysuria, Frequency, Incontinence, Hematuria, Retention , Other Musculoskeletal: negative: Neck Pain, Shoulder Pain, Arm Pain, Back Pain, Hand Pain, Leg Pain, Foot Pain, Other Neurological: negative: Weakness, Numbness, Incoordination, Change in Speech, Confusion, Seizures, Other - Medications/Allergies Allergies/Adverse Reactions: Allergies Allergy/AdvReac Type Severity Reaction Status Date / Time Sulfa (Sulfonamide Allergy Verified 05/23/18 14:18 Antibiotics) sulfamethoxazole Allergy Verified 05/23/18 14:18 [From Bactrim] trimethoprim [From Bactrim] Allergy Verified 05/23/18 14:18 Medications: Current Medications Acetaminophen (Tylenol) 650 mg PO Q4H PRN PRN Reason: Headache/Fever or Pain Acetaminophen (Tylenol) 1,000 mg PO Q6H PRN PRN Reason: Mild Pain (1-3) Hydrocodone Bitart/Acetaminophen ([place] 10/325) 1 tab PO Q4H PRN PRN Reason: Pain (1-3) Hydrocodone Bitart/Acetaminophen ([place] 10/325) 2 tab PO Q4H PRN PRN Reason: PAIN (4-6) Last Admin: 05/24/18 11:06 Dose: 2 tab Hydrocodone Bitart/Acetaminophen ([place] 5/325) 1 tab PO Q4H PRN PRN Reason: Moderate Pain (4-6) Benzonatate (Tessalon) 100 mg PO Q6H PRN PRN Reason: Cough Calcium Carbonate (Caltrate) 1,200 mg PO BID [facility] Last Admin: 05/24/18 09:03 Dose: 1,200 mg Cholecalciferol (Vitamin D3) 2,000 units PO BID [facility] Last Admin: 05/24/18 13:22 Dose: Not Given Clonidine (Catapres) 0.1 mg PO Q4H PRN PRN Reason: SBP > _160___ Diphenhydramine HCl (Benadryl) 25 mg PO Q6H PRN PRN Reason: Itching Fentanyl (Sublimaze) 50 mcg SLOW IVP Q30MIN PRN PRN Reason: Moderate Pain (4-6) Fentanyl (Sublimaze) 100 mcg SLOW IVP Q1H PRN PRN Reason: Severe Pain (7-10) Fentanyl (Sublimaze) 50 mcg IV Q1H PRN PRN Reason: BREAKTHROUGH PAIN Ferrous Gluconate (Fergon) 324 mg PO BID [facility] Last Admin: 05/24/18 09:04 Dose: 324 mg Guaifenesin (Robitussin Sf) 200 mg PO Q4H PRN PRN Reason: Cough Hydralazine HCl (Apresoline) 10 mg SLOW IVP Q4H PRN PRN Reason: SBP > 180 and HR < 70 Vancomycin HCl 1.5 gm/ Sodium (Chloride) 300 mls @ 200 mls/hr IVPB ONCALL-OR FILIBERTO Vancomycin HCl 2 gm/ Sodium (Chloride) 500 mls @ 250 mls/hr IVPB ONCALL-OR FIL[facility] Dextrose/Sodium Chloride (D5 1/2 Ns) 1,000 mls @ 100 mls/hr IV .Q10H [facility] Last Admin: 05/24/18 13:24 Dose: Not Given Ropivacaine 250 ml/ Device 250 mls @ 0 mls/hr NERVE BLCK INF [facility] Last Admin: 05/24/18 10:48 Dose: 250 mls Ibuprofen (Motrin) 400 mg PO DAILY [facility] Last Admin: 05/24/18 09:00 Dose: 400 mg Iron/Minerals/Multivitamins (Theragran M) 1 tab PO DAILY [facility] Last Admin: 05/24/18 09:04 Dose: 1 tab Ketorolac Tromethamine (Toradol) 30 mg IVP Q8HR PRN PRN Reason: Pain Stop: 05/25/18 14:01 Last Admin: 05/24/18 02:42 Dose: 30 mg Melatonin (Melatonin) 6 mg PO HS PRN PRN Reason: Insomnia Multivitamins (Theragran) 1 tab PO BID [facility] Last Admin: 05/24/18 10:07 Dose: Not Given Ondansetron HCl (Zofran) 4 mg IVP Q6H PRN PRN Reason: Nausea/Vomiting Pantoprazole Sodium (Protonix) 40 mg PO DAILY [facility] Last Admin: 05/24/18 10:49 Dose: 40 mg Promethazine HCl (Phenergan) 12.5 mg IM Q4H PRN PRN Reason: Nausea Rivaroxaban (Xarelto) 10 mg PO DAILY [facility] Last Admin: 05/24/18 09:02 Dose: 10 mg Senna/Docusate Sodium (Senokot S) 2 tab PO BID [facility] Last Admin: 05/24/18 13:22 Dose: Not Given Sodium Chloride (Flush - Normal Saline) 10 ml IVF PRN PRN PRN Reason: Saline Flush Tramadol HCl (Ultram) 50 mg PO Q6H PRN PRN Reason: Mild Pain (1-3) Tramadol HCl (Ultram) 100 mg PO Q6H PRN PRN Reason: Moderate Pain 4-6 Last Admin: 05/24/18 08:57 Dose: 100 mg Zolpidem Tartrate (Ambien) 5 mg PO HSPRN PRN PRN Reason: Insomnia
[2018-05-25] MEDS: HYDROcodone/Acetaminophen 10/325 mg Tablet PO PRN ×4 (00:12→13:50)
[2018-05-25 05:25] LABS: Hemoglobin 11.8 g/dL (14.0-18.0); Mean Corpuscular HGB CONC 33.2 g/dL (32.0-36.0); Mean Corpuscular Hemoglobin 29.3 pg (27.0-31.0); Mean Corpuscular Volume 88.3 fL (78.0-98.0); Mean Platelet Volume 6.6 fL (7.4-10.4); Platelet Count 225 thou/uL (130-400); RBC Distribution Width 12.2 % (11.5-14.5); Red Blood Cell (RBC) Count 4.01 mill/uL (4.70-6.10); White Blood Cell (WBC) Count 8.2 thou/uL (4.8-10.8)
[2018-05-25] MEDS: Multivitamin W/ Minerals 1 TAB PO SCH (08:05)
[2018-05-25] MEDS: Rivaroxaban 10 MG TAB PO SCH (08:05)
[2018-05-25] MEDS: Calcium Carbonate 600 MG TAB PO SCH (08:05)
[2018-05-25] MEDS: Ibuprofen 200 MG TAB PO SCH (08:06)
[2018-05-25] MEDS: Ferrous Gluconate 324 MG TAB PO SCH (08:06)
[2018-05-25] MEDS: Senokot S 8.6-50 MG TAB PO SCH (08:06)
[2018-05-25] MEDS: Multivit, Therapeutic 1 TAB PO SCH (08:07)
[2018-05-25] MEDS: Dextrose 5 %-0.45 % NaCl 1,000 ML IV SCH (10:21)
[2018-05-25 11:59] VITALS: BP 145/69; TEMP 98.4
== END 2018-05-25 14:00 | disposition home or self-care (01) | DRG 470 ==
LOC: SJJU 05-23 05:38
PROVIDERS: ADMIT Orthopaedic Surgery; ATTEND Orthopaedic Surgery
PROC: 0SRD0J9 Replacement of Left Knee Joint with Synthetic Substitute, Cemented, Open Approach (ICD-10-PCS; principal; 2018-05-23)
DX: M17.12 Unilateral primary osteoarthritis, left knee (principal); Z68.42 Body mass index [BMI] 45.0-49.9, adult; K21.9 Gastro-esophageal reflux disease without esophagitis; M21.162 Varus deformity, not elsewhere classified, left knee; E66.01 Morbid (severe) obesity due to excess calories; Z96.651 Presence of right artificial knee joint; Z86.718 Personal history of other venous thrombosis and embolism; Z98.84 Bariatric surgery status; Z98.890 Other specified postprocedural states; Z79.82 Long term (current) use of aspirin; Z88.1 Allergy status to other antibiotic agents; Z88.2 Allergy status to sulfonamides; Z86.79 Personal history of other diseases of the circulatory system
CPT/HCPCS: 36415; 80048; 85027; C1713; C1776; J0670; J1100; J1170; J1885; J2001; J2250; J2405; J2704; J2795; J3010; J3370; J7050

== ENCOUNTER 2018-12-18 12:55 | Outpatient (CLI) | payer BC ==
--- NOTE | 2018-12-18 13:22 | ULT ---
US Renal Bilateral STANDARD: 12/18/2018 12:00 AM CLINICAL HISTORY: Cystitis with hematuria STUDY: Renal ultrasound COMPARISON: None. FINDINGS: Right kidney: Echogenicity: Normal. Masses/cysts: None. Hydronephrosis: None. Calcifications: None. Length: 11.5 cm Left kidney: Echogenicity: Normal. Masses/cysts: None. Hydronephrosis: None. Calcifications: None. Length: 11.3 cm Limited visualization of the urinary bladder is unremarkable. IMPRESSION: Unremarkable renal ultrasound
== END 2018-12-18 12:56 | disposition home or self-care (01) ==
LOC: SCSULT 12:55
PROVIDERS: ATTEND Family Medicine
DX: N30.01 Acute cystitis with hematuria (principal); R30.0 Dysuria
CPT/HCPCS: 76770

== ENCOUNTER 2019-05-01 08:22 | Day surgery (SDC) | payer BC ==
[2019-04-30 11:53] VITALS: BMI 43.5
[2019-05-01] MEDS ORDERED: Lidocaine 1% PF 5 ML VIAL ONE (10:29)
[2019-05-01] MEDS ORDERED: PROPOFOL 200 MG/20 ML VIAL ONE (10:29)
--- NOTE | 2019-05-01 15:06 | OP ---
DATE OF PROCEDURE: 05/01/2019 PROCEDURE PERFORMED: Esophagogastroduodenoscopy. PREMEDICATION: Given by Anesthesiology Department. PREPROCEDURE DIAGNOSES: 1. Chronic gastroesophageal reflux disease with worsening of symptoms. 2. Hester's surveillance. POSTPROCEDURE DIAGNOSES: 1. Gastroesophageal junction with regular Z-line at 40 cm. 2. Changes of gastric sleeve. 3. Otherwise normal upper endoscopy. DESCRIPTION OF PROCEDURE: Written consents were obtained prior to procedure. After adequate sedation, the forward-viewing endoscope was advanced down the stomach under direct vision to the second portion of duodenum. Both the second portion and the bulb appeared normal. Pylorus was patent. The gastric antrum appeared normal. Gastric sleeve change was noted beginning at 55 cm from incisors up to 43 cm. The lumen appeared normal stool without any mucosal abnormality. The fundus appeared normal. GE junction was located at 40 cm with regular Z-line. There was no appreciable hiatal hernia. The lower, mid, and upper esophagus appeared normal. ASSESSMENT: 1. Normal post gastric sleeve exam. 2. Regular gastroesophageal junction with Z-line at 40 cm. 3. 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 RECOMMENDATION: 1. Increase omeprazole to 40 mg q.a.m. 2. Anti-reflux measures and precautions. Job ID: [id number]
== END 2019-05-01 12:02 | disposition home or self-care (01) ==
LOC: SDC 08:22
PROVIDERS: ATTEND Internal Medicine Gastroenterology
PROC: 0DJ08ZZ Inspection of Upper Intestinal Tract, Via Natural or Artificial Opening Endoscopic (ICD-10-PCS; principal; 2019-05-01)
DX: K21.9 Gastro-esophageal reflux disease without esophagitis (principal); Z79.82 Long term (current) use of aspirin; Z79.899 Other long term (current) drug therapy; Z98.84 Bariatric surgery status
CPT/HCPCS: J2001; J2704

== ENCOUNTER 2020-06-13 07:21 | Outpatient (CLI) | payer BC ==
[2020-06-13 21:53] LABS: SARS-CoV-2 PCR by NAA Not Detected (NotDetected)
== END 2020-06-13 07:22 | disposition home or self-care (01) ==
LOC: LABBT 07:21
PROVIDERS: ATTEND Internal Medicine Gastroenterology
DX: Z01.812 Encounter for preprocedural laboratory examination (principal); Z20.822 Contact with and (suspected) exposure to COVID-19
CPT/HCPCS: 87635; U0003; U0005

== ENCOUNTER 2020-06-18 06:57 | Day surgery (SDC) | payer BC ==
[2020-06-17 11:51] VITALS: BMI 52.7
[2020-06-18] MEDS ORDERED: Lidocaine 1% PF 5 ML VIAL ONE (09:19)
[2020-06-18] MEDS ORDERED: PROPOFOL 200 MG/20 ML VIAL ONE (09:19)
== END 2020-06-18 10:30 | disposition home or self-care (01) ==
LOC: SDC 06:57
PROVIDERS: ATTEND Internal Medicine Gastroenterology
PROC: 0DJD8ZZ Inspection of Lower Intestinal Tract, Via Natural or Artificial Opening Endoscopic (ICD-10-PCS; principal; 2020-06-18)
DX: Z12.11 Encounter for screening for malignant neoplasm of colon (principal); K57.30 Diverticulosis of large intestine without perforation or abscess without bleeding; K21.9 Gastro-esophageal reflux disease without esophagitis; Z79.82 Long term (current) use of aspirin; Z79.899 Other long term (current) drug therapy; Z87.891 Personal history of nicotine dependence; Z88.2 Allergy status to sulfonamides
CPT/HCPCS: J2704

== ENCOUNTER 2024-04-14 21:13 | Emergency (ER) | payer BC ==
[2024-04-14 22:12] LABS: #Basophils 0.04 10x3/uL (0.0-0.2); %Basophils 0.3 % (0.0-1.0); %Eosinophils 1.7 % (0.0-10.0); %Lymphocytes 6.7 % (21.0-51.0); %Monocytes 5.6 % (0.0-10.0); %Neutrophils 85.4 % (42.0-75.0); Hematocrit 41.8 % (42.0-52.0); Mean Corpuscular HGB CONC 33.5 g/dL (32.0-36.0); Mean Corpuscular Hemoglobin 28.6 pg (27.0-31.0); Mean Corpuscular Volume 85.3 fL (78.0-98.0); Mean Platelet Volume 8.7 fL (7.4-10.4); Platelet Count 294 10x3/uL (130-400); RBC Distribution Width 13.2 % (11.5-14.5)
[2024-04-14 22:28] LABS: ALT (SGPT) 26 U/L (8-55); AST (SGOT) 25 U/L (5-34); Albumin 4.2 g/dL (3.5-5.0); Alkaline Phosphatase 67 U/L (40-110); Anion Gap 19 mmol/L (10-20); BUN (Urea Nitrogen) 40 mg/dL (8.4-25.7); Bilirubin, Total 0.5 mg/dL (0.2-1.2); Calc. Creatinine Clearance 0 mL/min (70-130); Calcium 9.1 mg/dL (7.8-10.44); Carbon Dioxide 27 mmol/L (22-29); Chloride 96 mmol/L (98-107); Estimated GFR 61; Globulin 4.3 g/dL (2.4-3.5); Glucose 106 mg/dL (70-105); Potassium 3.7 mmol/L (3.5-5.1); Protein, Total 8.5 g/dL (6.0-8.3); Sodium 138 mmol/L (136-145)
[2024-04-14 22:38] LABS: Troponin I 0.015 ng/mL (< 0.028)
[2024-04-15 00:04] LABS: Bacteria/HPF None Seen HPF (None Seen); Bilirubin Negative (Negative); Blood, Urine Negative (Negative); CAUTI Indications for Culture Alt mental st,lethar; Clarity Clear (Clear); Glucose, Urine (Dipstick) Normal (Negative); Ketone, Urine Negative (Negative); Leukocyte 250 Leu/uL (Negative); Nitrite Negative (Negative); Protein, Urine (Dipstick) Negative (Neg-Trace); RBC/HPF 0-3 HPF (0-3); Specific Gravity, Urine 1.015 (1.002-1.036); Squamous Epithelial 0-3 HPF (0-3); Urobilinogen Normal mg/dL (Less than 2); pH, Urine 5.5 (5.0-9.0)
[2024-04-15 00:06] LABS: Urine Culture Reflex No No
[2024-04-15 01:50] LABS: Magnesium 2.1 mg/dL (1.6-2.6)
== END 2024-04-15 02:00 | disposition home or self-care (01) ==
LOC: ERS 21:13
DX: R55 Syncope and collapse (principal); K21.9 Gastro-esophageal reflux disease without esophagitis; I10 Essential (primary) hypertension; Z87.891 Personal history of nicotine dependence; Z79.899 Other long term (current) drug therapy
CPT/HCPCS: 36415; 70450; 71045; 80053; 81001; 83735; 83880; 84484; 85025; 87428; 93005; 96360

== ENCOUNTER 2024-04-17 14:51 | Emergency (ER) | payer BC ==
[2024-04-17 15:26] LABS: #Basophils 0.05 10x3/uL (0.0-0.2); %Basophils 0.5 % (0.0-1.0); %Eosinophils 1.9 % (0.0-10.0); %Monocytes 5.7 % (0.0-10.0); %Neutrophils 81.7 % (42.0-75.0); Hemoglobin 13.3 g/dL (14.0-18.0); Mean Corpuscular HGB CONC 33.3 g/dL (32.0-36.0); Mean Corpuscular Hemoglobin 28.6 pg (27.0-31.0); Mean Platelet Volume 8.9 fL (7.4-10.4); Platelet Count 317 10x3/uL (130-400); RBC Distribution Width 13.1 % (11.5-14.5); Red Blood Cell (RBC) Count 4.65 mill/uL (4.70-6.10)
[2024-04-17 15:46] LABS: ALT (SGPT) 20 U/L (8-55); AST (SGOT) 21 U/L (5-34); Albumin 3.8 g/dL (3.5-5.0); Alkaline Phosphatase 66 U/L (40-110); Anion Gap 15 mmol/L (10-20); BUN (Urea Nitrogen) 29 mg/dL (8.4-25.7); Bilirubin, Total 0.5 mg/dL (0.2-1.2); Calc. Creatinine Clearance 0 mL/min (70-130); Calcium 8.7 mg/dL (7.8-10.44); Carbon Dioxide 29 mmol/L (22-29); Chloride 98 mmol/L (98-107); Estimated GFR 78; Globulin 4.6 g/dL (2.4-3.5); Glucose 146 mg/dL (70-105); Potassium 3.1 mmol/L (3.5-5.1); Protein, Total 8.4 g/dL (6.0-8.3); Sodium 139 mmol/L (136-145)
[2024-04-17 15:51] LABS: Magnesium 1.8 mg/dL (1.6-2.6)
[2024-04-17 15:52] LABS: Acetaminophen Less than 10 mcg/mL (Less than 10); Alcohol Less than 10.0 mg/dL (Less than 10); Salicylate Less than 8.0 mg/dL (Less than 8.0)
[2024-04-17 15:56] LABS: Troponin I 0.011 ng/mL (< 0.028)
[2024-04-17] MEDS ORDERED: Magnesium 2 GM/50 ML BAG (IN WATER) ONE (17:15)
[2024-04-17] MEDS ORDERED: Potassium Bicarbonate/Cit Ac 20 MEQ TAB ONE (17:15)
[2024-04-17 18:13] LABS: Bilirubin Negative (Negative); Blood, Urine Trace (Negative); CAUTI Indications for Culture Pelvic or flank pain; Clarity Turbid (Clear); Glucose, Urine (Dipstick) Normal (Negative); Ketone, Urine Negative (Negative); Leukocyte 500 Leu/uL (Negative); Nitrite 2+ (Negative); Protein, Urine (Dipstick) Negative (Neg-Trace); RBC/HPF 0-3 HPF (0-3); Specific Gravity, Urine 1.009 (1.002-1.036); Squamous Epithelial 0-3 HPF (0-3); Urobilinogen Normal mg/dL (Less than 2); WBC/HPF Greater than 50 HPF (0-3)
[2024-04-17 18:14] LABS: Bacteria/HPF 1+ HPF (None Seen)
[2024-04-17 18:15] LABS: Urine Culture Reflex Yes Yes
[2024-04-17 18:20] LABS: Amphetamine Not Detected (NotDetected); Barbiturates Screen Not Detected (NotDetected); Benzodiazepine Screen Not Detected (NotDetected); Cocaine Metabolite Screen Not Detected (NotDetected); Methadone Not Detected (NotDetected); Methamphetamine Not Detected (NotDetected); Opiate Screen Not Detected (NotDetected); Oxycodone Screen Not Detected (NotDetected); Phencyclidine (PCP) Not Detected (NotDetected); THC/Cannabinoid Screen Not Detected (NotDetected); Tricyclic Screen Not Detected (NotDetected)
[2024-04-17] MEDS ORDERED: cefTRIAXone (ROCEPHIN) 1 GM VIAL ONE (18:38)
[2024-04-17] MEDS ORDERED: Sodium Chloride 0.9% 100 ML ONE (18:38)
== END 2024-04-17 19:24 | disposition home or self-care (01) ==
LOC: ERS 14:51
DX: N39.0 Urinary tract infection, site not specified (principal); I49.3 Ventricular premature depolarization; I10 Essential (primary) hypertension; K21.9 Gastro-esophageal reflux disease without esophagitis; Z87.891 Personal history of nicotine dependence; Z79.899 Other long term (current) drug therapy
CPT/HCPCS: 36415; 71045; 80053; 80306; 80307; 81001; 83735; 83880; 84443; 84484; 85025; 87077; 87086; 93005; 96365; 96367; J0696; J3475